=== PATIENT | female | born 1950 | race Caucasian/White ===

== ENCOUNTER 2016-12-17 10:38 | Day surgery (SDC) | payer OTHER ==
--- NOTE | 2016-12-14 17:20 | GHP ---
[f rep st] PREOP HISTORY AND PHYSICAL DATE OF ADMISSION: 12/17/2016 PLANNED PROCEDURE: Hysteroscopy with morcellation of endometrial tissue. DIAGNOSIS: Postmenopausal bleeding. INDICATIONS: Patient is a 66-year-old 1, para 0-0-1-0, who initially presented to my office for an annual exam, after Dr. Borrego's office closed. The patient came to establish care. She did have a history of an abnormal Pap smear in 2015. She had a colposcopy with ELY I. The patient had recurrent abnormal Pap smears in her 20s and had cryosurgery, but otherwise her Pap smears have all been negative. She had a repeat Pap smear performed 10/2016, which showed atypical cells. Patient plans to have a repeat Pap smear in March to follow up on her abnormal Pap. During the patient's visit, she discussed an extensive family history of cancer, and we discussed the pluses and minuses of a pelvic ultrasound. The patient stated that having a pelvic ultrasound because of her family history of ovarian cancer would be reassuring, so she was scheduled for a pelvic ultrasound. The patient showed up and on the day of the scheduled pelvic ultrasound she had postmenopausal bleeding. She started bleeding prior to the pelvic ultrasound and has no history of this. The patient 's pelvic ultrasound shows a uterus measuring 7.3 x 4.3 x 6.1 cm with an endometrium measuring 0.8 cm. She has a 3.8 x 3.2 x 4.1 cm fibroid, and a small complex cyst on her left ovary. Management options were reviewed extensively with the patient, including endometrial biopsy in the office versus hysteroscopy with morcellation of endometrial tissue. Risks and benefits of the procedure were reviewed with the patient, and the patient has been properly consented. MEDICAL HISTORY: Postmenopausal bleeding, possibly due to hormone replacement therapy. Infertility secondary to significant endometriosis. Cervical dysplasia. MEDICATIONS: Estrogen patch, progesterone. SURGICAL HISTORY: Cryosurgery of the cervix, laparoscopy, laparotomy, and removal of a significant amount of endometriosis per the patient. Surgery lasted 6 hours. She had a hysterosalpingogram, multiple breast biopsies, and a surgical biopsy, and multiple colonoscopies. ALLERGIES: No known drug allergies. SOCIAL HISTORY: The patient is . She denies tobacco or drug use. She does drink 1-2 alcoholic drinks a week. FAMILY MEDICAL HISTORY: Significant for a first cousin who had ovarian cancer, a sister who had breast cancer at 49. Patient's sister was not tested for the BCRA gene and will not get tested. Maternal grandmother who had uterine cancer at 50. The patient does have a remote history of abnormal Pap smear. She had cryosurgery in her 20s. She did have a Pap smear in March of 2016, which was ASCUS with high-risk HPV. Her colposcopy was ELY I, and she plans to have a repeat Pap smear in March of 2017. The patient is a 1, para 0-0-1-0. She had a voluntary termination of and then infertility secondary to significant endometriosis. PHYSICAL EXAMINATION: VITAL SIGNS: Stable. GENERAL APPEARANCE: She is alert and oriented x3. HEART: Irregularly irregular. LUNGS: Clear to auscultation bilaterally. ABDOMEN: Soft, nondistended, nontender. EXTREMITIES: No calf tenderness or edema. PELVIC: Mobile midposition uterus with no adnexal masses. ASSESSMENT AND PLAN: A 66-year-old 1, para 0-0-1-0, with an episode of postmenopausal bleeding and a thickened endometrium. Because the patient is nulliparous, she has opted to proceed with a hysteroscopy with morcellation of endometrial tissue. Risks and benefits of the procedure extensively have been reviewed with the patient, and the patient has been properly consented. /[id number]/MODL MTDD
[~2016-12-17 10:38] MED LIST: SILVER NITRATE APPLICATOR 1 APPL TP ONE
[2016-12-17] MEDS ORDERED: LR 1,000 ML IV ONE (11:16)
[2016-12-17] MEDS ORDERED: MIDAZOLAM 2 MG/2 ML VIAL ONE (12:14)
[2016-12-17] MEDS ORDERED: fentaNYL 100 MCG/2 ML INJ ONE (12:38)
[2016-12-17] MEDS ORDERED: PROPOFOL 200 MG/20 ML VIAL ONE ×2 (12:38→12:48)
[2016-12-17] MEDS ORDERED: DEXAMETHASONE 4 MG/ML VIAL ONE (13:01)
[2016-12-17] MEDS ORDERED: epHEDrine SULFATE 10 MG/ML SYR ONE (13:01)
[2016-12-17] MEDS ORDERED: KETOROLAC 30 MG/1 ML SDV ONE (13:01)
[2016-12-17] MEDS ORDERED: METOCLOPRAMIDE 10 MG/2 ML VIAL ONE (13:01)
[2016-12-17] MEDS ORDERED: ONDANSETRON 4 MG/2 ML VIAL ONE (13:01)
--- NOTE | 2016-12-17 19:07 | GOP ---
[f rep st] OPERATIVE REPORT DATE OF OPERATION: 12/17/2016 SURGEON: Linda Verde DO ANESTHESIA: General with LMA. ANESTHESIOLOGIST: Sunni Jarrell. PREOPERATIVE DIAGNOSIS: Postmenopausal bleeding. POSTOPERATIVE DIAGNOSIS: Postmenopausal bleeding. PROCEDURE PERFORMED: Hysteroscopy with dilation and curettage. FINDINGS: 1. Exam under anesthesia, mobile mid position uterus with no adnexal masses. 2. Hysteroscopic findings: Bilateral tubal ostia visualized, thin endometrium. SPECIMENS: Endometrial curettings. ESTIMATED BLOOD LOSS: 10 cc. INDICATIONS: Patient is a 66-year-old, 1, para 0-0-1-0, who has been on estrogen and progest erone for hormone replacement. She had 1 episode of postmenopausal bleeding done last month. A pelv ic ultrasound was obtained which showed an 8 mm endometrium. Because the patient is nulliparous, we opted to proceed with a hysteroscopy and dilation and curettage. Initial plan was for hysteroscopy w ith morcellation with endometrial morcellator; however, they were having equipment issues, so decisio n was made to just perform a dilation and curettage. Risks and benefits of the procedure were review ed with the patient, and the patient was properly consented. DESCRIPTION OF PROCEDURE: Patient was taken to the operating room with intravenous fluids in place. She was then placed on the operating room table in the dorsal supine position where general anesthes ia was obtained with an LMA. She was then repositioned into the dorsal lithotomy position with the Y ellofin stirrups, and prepped and draped in normal sterile fashion. Exam under anesthesia revealed a mobile mid position uterus with no adnexal masses. A speculum was then placed in the patient's vagi na. An Allis clamp was used to grasp the anterior lip of the cervix. The cervix was then carefully dilated to allow for the introduction of an operative hysteroscope. Bilateral tubal ostia were visua lized. Overall thin endometrium was noted. There was 1 small piece of floating endometrial tissue t hat I did note. A sharp metal curette was then introduced, and a circumferential curettage was perfo rmed until a gritty texture was noted. A small amount of endometrial tissue was collected. The hyst eroscope was then reintroduced with fluid medium running. No obvious findings were noted. Instrumen ts were then removed from the patient's vagina. The patient was returned to the dorsal supine positi on where she was easily awoken from anesthesia. Sponge count was correct. The patient was transferr ed to recovery room in stable condition. /[id number]/MODL
== END 2016-12-17 14:44 | disposition home or self-care (01) ==
LOC: FSGY 10:38
PROVIDERS: ATTEND Obstetrics & Gynecology
PROC: 0UDB8ZX Extraction of Endometrium, Via Natural or Artificial Opening Endoscopic, Diagnostic (ICD-10-PCS; principal; 2016-12-17 12:15)
DX: N95.0 Postmenopausal bleeding (principal)
CPT/HCPCS: J1100; J1885; J2250; J2405; J2704; J2765; J3010

== ENCOUNTER → 2017-10-05 | Outpatient (CLI) | payer OTHER | LOC: FIMAGING 14:28 | PROVIDERS: ATTEND Obstetrics & Gynecology | DX: Z12.31 Encounter for screening mammogram for malignant neoplasm of breast (principal); Z80.3 Family history of malignant neoplasm of breast | CPT/HCPCS: G0202 ==

== ENCOUNTER → 2017-10-14 | Outpatient (CLI) | payer OTHER | LOC: FIMAGING 10:16 | PROVIDERS: ATTEND Obstetrics & Gynecology | DX: R92.8 Other abnormal and inconclusive findings on diagnostic imaging of breast (principal) ==

== ENCOUNTER → 2018-11-08 | Outpatient (CLI) | payer OTHER | LOC: FIMAGING 12:53 | PROVIDERS: ATTEND Internal Medicine | DX: R92.8 Other abnormal and inconclusive findings on diagnostic imaging of breast (principal) ==

== ENCOUNTER → 2018-11-11 | Outpatient (CLI) | payer OTHER | LOC: BMCIMAGING 14:04 | PROVIDERS: ATTEND Family Medicine | DX: R05 Cough (principal) ==